=== PATIENT | male | born 1965 | race Two or more races ===

== ENCOUNTER 2024-04-02 15:03 | Outpatient (AMB) | payer OTHER, SELFPAY ==
--- NOTE | 2024-04-02 15:06 | A.OFFVIS_ITS ---
Vital Signs 04/02/24 15:27 Height 5 ft 11 in Weight 196 lb 8 oz BMI 27.4 BP 132/80 Blood Pressure Location Lt brachial Position Sitting Pulse 70 Pulse Source Pulse Oximeter Pulse Oximetry (%) 96 Oxygen Delivery Method Room Air Intake Visit Reasons: ENP-Extremity Neuropathy-CONF Intake Note: Patient presents for Extremity Neuropathy. Suffering from chronic lower back pain, still having trouble sleeping at night because I wake up with my legs cramping, tingling on hands, feet and toes. Appetite has decline. Having very bad anxiety and fear of falling or having another cardiac event. Allergies No Known Allergies Allergy (Verified 04/02/24 15:16) Medication List - Last Reconciled 04/02/24 by DANICA Abreu acetaminophen 325 mg PO QID PRN aspirin 81 mg PO DAILY atorvastatin 80 mg PO DAILY cyclobenzaprine 5 mg PO BEDTIME PRN insulin glargine (Lantus Solostar U-100 Insulin) 8 units subcut QPM losartan 50 mg PO DAILY metformin ER 500 mg PO BID metoprolol succinate ER 100 mg PO DAILY mirtazapine 15 mg PO BEDTIME naproxen 500 mg PO BID omeprazole 20 mg PO DAILY vitamin B complex-folic acid 0.4 mg 1 tab PO DAILY HPI Comments Details: handed 59-yr-old male presents for neurological evaluation of paresthesias. PMH: Left sided sciatica type pain since he had a fall in spring. Diabetes mellitus type 2- Dx'd 2 yrs ago in 2021. HgA1C 8.5 %?High (09/23/23 , He states his diabetes is controlled. HTN. Inferior STEMI 05/16/2023 s/p PCI with EVETTE x1- culprit 99% stenosis mid RCA.? He had residual CAD- proximal LAD and proximal OM2.?Immediately after completing a f/u EKG stress test, pt developed VF arrest.? Repeat cardiac cath showed progression of CAD and thus underwent CABG x 5 (COOL to LAD, left radial to OM1, SVG to OM 2, SVG to diagonal 1, SVG to diagonal 2) 09/2023.? Last cardiac MRI prior to CABG showed LVEF 53%. Pt states prior to May 2023, he was prone to eat a lot of high sugar foods. Pt reports that he started having bilateral, but more in left toes and plantar foot- it is a sensation of swelling and numbness, Lasts for 3-5 minutes, and occurs about 3 times per week. Last week, woke up with leg cramp that moved down into the left foot- toes cramped in a flexed position. But this has happened in the right foot as well as both feet. The cramps last 5-10 minutes and occur 3-4 nights a week. Then started having tingling in his left hand, but can occur bilaterally. The tingling lasts a few minutes. Occurs a few days a week- maybe every other day. His hands can feel stiff for a few minutes- maybe once a week. Since, the recent CABG, he has had difficulty sleeping- as he was advised to sleep on his back, but normally would sleep on his side d/t his chronic back pain. Now, he sleeps 5-6 hrs per night. Prior to the cardiac sx, he would sleep 7-8 hrs per night. Pt also endorses- toes may seem red at time. Leg cramps when sitting or laying down. Gait can feel off-balance. May feel anxious and he is worried he may fall. Walking w/ cane since cardiac surgery. Occasional non-radiating neck stiffness- he attributes to stress. Pt denies visible peripheral swelling, calf cramps when walking. 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 [facility] 01/29/24 16:10 09/24/23 22:19 05/16/2023 05:01 WBC 10.1 RBC 4.69 HgB 14.1 HCT 42.7 MCV 91.0 Platelet 267 Sodium 140 Potassium 3.9 chloride 103 bicarbonate level 27 anion gap 10 glucose level 112 BUN 11 creatinine 0.8 estimated GFR creatinine 106 calcium 9.0 phosphorus 2.8 magnesium 1.0 total protein 6.6 albumin 4.1 AG ratio 1.6 alkaline phosphatase 101 AST 19 the ALT 31 bilirubin, total 0.7 Nt-Probnp ? 401 High Sensitivity Troponin (HSTnT) 16 Iron Level 143 -- Iron Binding Capacity, Unsaturated 179 -- Iron Binding Capacity, Estimated Total 322 -- % Iron Saturation 44 -- Ferritin Level ?464 H TSH ?<0.01 L 11/2023, US Extremity Non-Vascular Right Limited IMPRESSION: Hypoechoic tissue surrounded by echogenic fat along the expected course of the previously harvested greater saphenous vein in the right medial proximal thigh, likely representing subcutaneous edema. A rounded hypoechoic lesion in the superficial soft tissues measuring up to 0.5 cm may represent a small seroma or hematoma. Findings likely reflect postoperative change/fat necrosis. Clinical follow-up can be considered. [facility] Surgical History (Updated 04/02/24 @ 15:37 by ARLEY Modi) H/O heart surgery Hx of colonoscopy Family History (Updated 04/02/24 @ 15:27 by ARLEY Modi) Father Hypertension Mother Hypertension Diabetes Social History (Updated 03/31/24 @ 15:14 by Denia Barron [facility]) Alcohol intake: never Patient Tobacco Use Status: Never used Tobacco Review of Systems Const All systems reviewed & are unremarkable except as noted in HPI and below Physical Exam Vital Signs: Last Vital Signs Pulse 70 04/02/24 15:27 BP 132/80 04/02/24 15:27 Pulse Ox 96 04/02/24 15:27 Oxygen Delivery Method Room Air 04/02/24 15:27 BMI result Body Mass Index 27.4 Const General: cooperative and no acute distress Orientation/consciousness: patient oriented x3 HEENT Head: Yes normocephalic Resp Effort & Inspection: normal respiratory effort and able to speak in complete sentences Neuro General: patient oriented x3, moves all extremities, CN's II-XI intact bilaterally and deep tendon reflexes 2+ bilaterally Gait exam (Neuro): Normal gait present Motor exam (neuro): 5/5 motor strength present throughout Psych Appearance: grossly normal Mental Status: mental status grossly normal Speech and movement: Normal speech and movement present Affect: normal affect Attitude: cooperative Thought process: Normal thought process present Thought content: Normal thought content present Insight: Good insight present (Psych) Assessment & Plan Assessment & Plan (1) Paresthesia: Code(s): R20.2 - Paresthesia of skin Category: Medical (2) Muscle cramps: Code(s): R25.2 - Cramp and spasm Category: Medical (3) Fatigue: Code(s): R53.83 - Other fatigue Category: Medical (4) Snoring: Code(s): R06.83 - Snoring Category: Medical (5) History of ST elevation myocardial infarction (STEMI): Code(s): I25.2 - Old myocardial infarction Category: Medical Plan Patient advised to undergo: Lab workup to assess for secondary etiologies of paresthesias, muscle cramps, fatigue BUE EMG/NCS BLE EMG/NCS In lab sleep study to assess for sleep apnea, limb movements of sleep Trial magnesium oxide 400 mg q.h.s.- for leg cramps. Orders: Orders Comprehensive Met. Panel 04/02/24 R20.2 - Paresthesia of skin, R25.2 - Cramp and spasm, E11.9 - Type 2 diabetes mellitus without complications, I10 - Essential (primary) hypertension, Z86.2 - Personal history of diseases of the blood and blood-forming organs and certain disorders involving the immune mechanism, R79.89 - Other specified abnormal findings of blood chemistry, R53.83 - Other fatigue Complete Blood Count Auto Diff 04/02/24 R20.2 - Paresthesia of skin, R25.2 - Cramp and spasm, E11.9 - Type 2 diabetes mellitus without complications, I10 - Essential (primary) hypertension, Z86.2 - Personal history of diseases of the blood and blood-forming organs and certain disorders involving the immune mechanism, R79.89 - Other specified abnormal findings of blood chemistry, R53.83 - Other fatigue CRP High Sensitivity 04/02/24 R20.2 - Paresthesia of skin, R25.2 - Cramp and spasm, E11.9 - Type 2 diabetes mellitus without complications, I10 - Essential (primary) hypertension, Z86.2 - Personal history of diseases of the blood and blood-forming organs and certain disorders involving the immune mechanism, R79.89 - Other specified abnormal findings of blood chemistry, R53.83 - Other fatigue Ferritin 04/02/24 R20.2 - Paresthesia of skin, R25.2 - Cramp and spasm, E11.9 - Type 2 diabetes mellitus without complications, I10 - Essential (primary) hypertension, Z86.2 - Personal history of diseases of the blood and blood- forming organs and certain disorders involving the immune mechanism, R79.89 - Other specified abnormal findings of blood chemistry, R53.83 - Other fatigue Vitamin D 25-OH (D2 and D3) 04/02/24 R20.2 - Paresthesia of skin, R25.2 - Cramp and spasm, E11.9 - Type 2 diabetes mellitus without complications, I10 - Essential (primary) hypertension, Z86.2 - Personal history of diseases of the blood and blood-forming organs and certain disorders involving the immune mechanism, R79.89 - Other specified abnormal findings of blood chemistry, R53.83 - Other fatigue TSH reflex Free T4 04/02/24 R20.2 - Paresthesia of skin, R25.2 - Cramp and spasm, E11.9 - Type 2 diabetes mellitus without complications, I10 - Essential (primary) hypertension, Z86.2 - Personal history of diseases of the blood and blood-forming organs and certain disorders involving the immune mechanism, R79.89 - Other specified abnormal findings of blood chemistry, R53.83 - Other fatigue Methylmalonic Acid 04/02/24 R20.2 - Paresthesia of skin, R25.2 - Cramp and spasm, E11.9 - Type 2 diabetes mellitus without complications, I10 - Essential (primary) hypertension, Z86.2 - Personal history of diseases of the blood and blood-forming organs and certain disorders involving the immune mechanism, R79.89 - Other specified abnormal findings of blood chemistry, R53.83 - Other fatigue Erythrocyte Sedimentation Rate 04/02/24 R20.2 - Paresthesia of skin, R25.2 - Cramp and spasm, E11.9 - Type 2 diabetes mellitus without complications, I10 - Essential (primary) hypertension, Z86.2 - Personal history of diseases of the blood and blood-forming organs and certain disorders involving the immune mechanism, R79.89 - Other specified abnormal findings of blood chemistry, R53.83 - Other fatigue Magnesium 04/02/24 R20.2 - Paresthesia of skin, R25.2 - Cramp and spasm, E11.9 - Type 2 diabetes mellitus without complications, I10 - Essential (primary) hypertension, Z86.2 - Personal history of diseases of the blood and blood-formi ng organs and certain disorders involving the immune mechanism, R79.89 - Other specified abnormal findings of blood chemistry, R53.83 - Other fatigue RT PSG in-lab sleep study 04/02/24 R53.83 - Other fatigue, R06.83 - Snoring, I25.2 - Old myocardial infarction Creatine Kinase Total 04/02/24 R20.2 - Paresthesia of skin, R25.2 - Cramp and spasm, E11.9 - Type 2 diabetes mellitus without complications, I10 - Essential (primary) hypertension, Z86.2 - Personal history of diseases of the blood and blood-forming organs and certain disorders involving the immune mechanism, R79.89 - Other specified abnormal findings of blood chemistry, R53.83 - Other fatigue HIV Ab/Ag 04/02/24 R20.2 - Paresthesia of skin, R25.2 - Cramp and spasm, E11.9 - Type 2 diabetes mellitus without complications, I10 - Essential (primary) hypertension, Z86.2 - Personal history of diseases of the blood and blood- forming organs and certain disorders involving the immune mechanism, R79.89 - Other specified abnormal findings of blood chemistry, R53.83 - Other fatigue Homocysteine 04/02/24 R20.2 - Paresthesia of skin, R25.2 - Cramp and spasm, E11.9 - Type 2 diabetes mellitus without complications, I10 - Essential (primary) hypertension, Z86.2 - Personal history of diseases of the blood and blood-forming organs and certain disorders involving the immune mechanism, R79.89 - Other specified abnormal findings of blood chemistry, R53.83 - Other fatigue IRON PROFILE 04/02/24 R20.2 - Paresthesia of skin, R25.2 - Cramp and spasm, E11.9 - Type 2 diabetes mellitus without complications, I10 - Essential (primary) hypertension, Z86.2 - Personal history of diseases of the blood and blood-forming organs and certain disorders involving the immune mechanism, R79.89 - Other specified abnormal findings of blood chemistry, R53.83 - Other fatigue Vitamin B12 and Folate 04/02/24 R20.2 - Paresthesia of skin, R25.2 - Cramp and spasm, E11.9 - Type 2 diabetes mellitus without complications, I10 - Essential (primary) hypertension, Z86.2 - Personal history of diseases of the blood and blood-forming organs and certain disorders involving the immune mechanism, R79.89 - Other specified abnormal findings of blood chemistry, R53.83 - Other fatigue Hemoglobin A1c 04/02/24 R20.2 - Paresthesia of skin, R25.2 - Cramp and spasm, E11.9 - Type 2 diabetes mellitus without complications, I10 - Essential (primary) hypertension, Z86.2 - Personal history of diseases of the blood and blood-forming organs and certain disorders involving the immune mechanism, R79.89 - Other specified abnormal findings of blood chemistry, R53.83 - Other fatigue NE electromyogram (EMG) 04/02/24 R20.2 - Paresthesia of skin, R25.2 - Cramp and spasm, E11.9 - Type 2 diabetes mellitus without complications NE nerve conduction velocity 04/02/24 R20.2 - Paresthesia of skin, R25.2 - Cramp and spasm, E11.9 - Type 2 diabetes mellitus without complications Medications: New magnesium oxide may hold for loose stools 400 mg PO BEDTIME 30 tabs 6RF 30 days Coding Level of Care Code New Pt Level 4 (12313) Diagnoses Paresthesia R20.2 Muscle cramps R25.2 Fatigue R53.83 Snoring R[address] elevation myocardial infarction (STEMI) I25.2
[2024-04-02 15:27] VITALS: BP 132/80; PULSE 70; O2SAT 96; BMI 27.4
== END 2024-04-02 16:50 | disposition home or self-care (01) ==
PROVIDERS: PCP Internal Medicine; Visit Provider Nurse Practitioner Family
DX: R20.2 Paresthesia of skin (principal); R25.2 Cramp and spasm; R53.83 Other fatigue; R06.83 Snoring; I25.2 Old myocardial infarction
CPT/HCPCS: 99204

== ENCOUNTER → 2024-04-02 15:03 | Outpatient (BNVA) | payer OTHER, SELFPAY | PROVIDERS: PCP Internal Medicine; Visit Provider Nurse Practitioner Family | DX: R20.2 Paresthesia of skin (principal); R25.2 Cramp and spasm; R53.83 Other fatigue; R06.83 Snoring; I25.2 Old myocardial infarction | CPT/HCPCS: 99202 ==

== ENCOUNTER → 2024-05-25 19:30 | Outpatient (REF) | payer OTHER, SELFPAY | LOC: HO.SL 19:30 | PROVIDERS: PCP Internal Medicine; Visit Provider Nurse Practitioner Family | DX: G47.33 Obstructive sleep apnea (adult) (pediatric) (principal); R53.83 Other fatigue; R06.83 Snoring | CPT/HCPCS: 95810 ==

== ENCOUNTER → 2024-05-25 22:59 | Outpatient (BNV) | payer OTHER, SELFPAY | PROVIDERS: PCP Internal Medicine; Visit Provider Psychiatry & Neurology Neurology | DX: G47.33 Obstructive sleep apnea (adult) (pediatric) (principal) | CPT/HCPCS: 95810 ==

== ENCOUNTER 2024-06-04 13:56 | Outpatient (REF) | payer OTHER, SELFPAY ==
--- NOTE | 2024-06-04 14:03 | EMG_ITS ---
Chief complaint: Feet and hand numbness, leg cramps, history of diabetes, CABG Reason for referral: Evaluate for neuropathy Referred by: Daxa Cordero NP Procedure done: Upper and lower extremities NCS/EMG Precautions and/or limitations: Afraid of needles The limb temperature was monitored continuously and remained between 32-36 degrees C during the performance of the NCS. Nerve Conduction Studies Anti Sensory Summary Table ?Stim Site NR Onset (ms) Norm Onset (ms) Peak (ms) Norm Peak (ms) O-P Amp (?V) Norm O-P Amp Site1 Site2 Delta-0 (ms) Dist (cm) Michael (m/s) Norm Michael (m/s) Left Median Anti Sensory (2nd Digit) Wrist ? 2.7 3.4 <3.6 18.3 >10 Wrist 2nd Digit 2.7 14.0 52 Right Median Anti Sensory (2nd Digit) Wrist ? 2.8 3.8 <3.6 12.7 >10 Wrist 2nd Digit 2.8 14.0 50 Left Sural Anti Sensory (Lat Mall) Calf ? 3.7 4.3 <4.0 3.9 >5.0 Calf Lat Mall 3.7 14.0 38 Right Sural Anti Sensory (Lat Mall) Calf ? 3.3 3.8 <4.0 5.2 >5.0 Calf Lat Mall 3.3 14.0 42 Left Ulnar Anti Sensory (5th Digit) Wrist ? 0.9 3.2 <3.7 17.8 >15.0 Wrist 5th Digit 0.9 14.0 156 Right Ulnar Anti Sensory (5th Digit) Wrist ? 2.2 3.2 <3.7 15.2 >15.0 Wrist 5th Digit 2.2 14.0 64 Motor Summary Table ?Stim Site NR Onset (ms) Norm Onset (ms) O-P Amp (mV) Norm O-P Amp iAmp (mV) Amp (1st) (%) Site1 Site2 Delta-0 (ms) Dist (cm) Michael (m/s) Norm Michael (m/s) Left Median Motor (Abd Poll Brev) Wrist ? 3.2 <3.9 12.0 >4.5 15.3 100.0 Elbow Wrist 5.0 24.5 49 >45 Elbow ? 8.2 10.5 13.9 87.5 Right Median Motor (Abd Poll Brev) Wrist ? 3.8 <3.9 12.3 >4.5 15.5 100.0 Elbow Wrist 5.1 25.0 49 >45 Elbow ? 8.9 10.5 13.1 85.4 Right Peroneal Motor (Ext Dig Brev) Ankle ? 4.7 <4.0 6.7 >2.5 8.5 100.0 Ankle Ext Dig Brev 4.7 0.0 B Fib ? 13.6 5.2 6.6 77.6 B Fib Ankle 8.9 37.5 42 >40 Poplt ? 14.5 5.4 6.6 80.6 Poplt B Fib 0.9 4.0 44 >40 Left Tibial Motor (Abd Wood Brev) Ankle ? 4.7 <5 5.8 >2.5 7.3 100.0 Ankle Abd Wood Brev 4.7 0.0 Knee ? 15.9 4.2 5.7 72.4 Knee Ankle 11.2 44.0 39 >40 Right Tibial Motor (Abd Wood Brev) Ankle ? 4.8 <5 2.3 >2.5 2.9 100.0 Ankle Abd Wood Brev 4.8 0.0 Knee ? 14.4 1.3 1.6 56.5 Knee Ankle 9.6 44.5 46 >40 Left Ulnar Motor (Abd Dig Minimi) Wrist ? 2.7 <3.0 6.4 >5 7.2 100.0 B Elbow Wrist 4.2 22.5 54 >45 B Elbow ? 6.9 5.7 6.5 89.1 A Elbow B Elbow 1.9 10.0 53 >45 A Elbow ? 8.8 5.4 6.3 84.4 Right Ulnar Motor (Abd Dig Minimi) Wrist ? 2.4 <3.0 9.0 >5 11.0 100.0 B Elbow Wrist 4.8 24.0 50 >45 B Elbow ? 7.2 8.6 10.7 95.6 A Elbow B Elbow 1.3 10.0 77 >45 A Elbow ? 8.5 8.4 10.4 93.3 Comparison Summary Table ?Stim Site NR Peak (ms) Norm Peak (ms) P-T Amp (?V) Site1 Site2 Delta-P (ms) Norm Delta (ms) Right Median/Radial Dig I Comparison (Digit 1 - 10cm) Median ? 3.2 <2.9 176.5 Median Radial 0.7 Radial ? 2.5 <2.8 12.3 EMG ?Side Muscle Nerve Root Ins Act Fibs Psw Amp Dur Poly Recrt Int Pat Comment Right 1stDorInt Ulnar C8-T1 Nml Nml Nml Nml Nml 0 Nml Complete Right FlexCarRad Median C6-7 Nml Nml Nml Nml Nml 0 Nml Complete Right Biceps Musculocut C5-6 Nml Nml Nml Nml Nml 0 Nml Complete Right Triceps Radial C6-7-8 Nml Nml Nml Nml Nml 0 Nml Complete Right Deltoid Axillary C5-6 Nml Nml Nml Nml Nml 0 Nml Complete Right AbdHallucis MedPlantar S1-2 Nml Nml Nml Nml Nml 0 Nml Complete Right AntTibialis Dp Br Peron L4-5 Incr 1+ 1+ Nml Nml 0 Nml Complete Right PostTibialis Tibial L5, S1 Nml Nml Nml Nml Nml 0 Nml Complete Right MedGastroc Tibial S1-2 Nml Nml Nml Nml Nml 0 Nml Complete Right VastusMed Femoral L2-4 Nml Nml Nml Nml Nml 0 Nml Complete Left AbdHallucis MedPlantar S1-2 Incr 1+ 1+ Nml Nml 0 Nml Complete Left AntTibialis Dp Br Peron L4-5 Nml Nml Nml Nml Nml 0 Nml Complete Left PostTibialis Tibial L5, S1 Nml Nml Nml Nml Nml 0 Nml Complete Left MedGastroc Tibial S1-2 Nml Nml Nml Nml Nml 0 Nml Complete Left VastusMed Femoral L2-4 Nml Nml Nml Nml Nml 0 Nml Complete Paraspinal EMG ?Side Muscle Nerve Root Ins Act Fibs Psw Comment Right Lumbar Upper Rami Nml Nml Nml Right Lumbar Mid Rami Nml Nml Nml Right Lumbar Lower Rami Nml Nml Nml Left Lumbar Upper Rami Nml Nml Nml Left Lumbar Mid Rami Nml Nml Nml Left Lumbar Lower Rami Nml Nml Nml FINDINGS: Right peroneal nerve showed prolonged distal latency, normal amplitude and normal conduction velocity. Right tibial nerve showed normal distal latency, small amplitudes with temporal dispersion and normal conduction velocity. Left tibial nerve showed normal distal latency, small amplitude and slow conduction velocity. Left sural showed prolonged peak latency. Right median sensory nerve showed prolonged peak latencies. Significant interlatency difference between right median and radial sensory nerves. All other nerves tested were within normal. Concentric needle EMG was performed in selected muscles of the bilateral lower extremities and were paraspinals, right upper extremity. Study revealed signs of electric abnormalities as shown in the table above. Bilateral AH showed increased insertional activity, PSWs and fibrillations. No denervation seen on lumbar paraspinals. No myopathic looking units. IMPRESSION: 1. This is an abnormal study. 2. There is electrodiagnostic evidence for sensorimotor distal polyneuropathy, with both demyelinating and axonal features.. 3. There is electrodiagnostic evidence for mild median neuropathy at the wrist, consistent with Carpal Tunnel Syndrome. 4. There is no electrodiagnostic evidence for ulnar neuropathy, brachial plexopathy, cervical radiculopathy, or lumbar radiculopathy. CLINICAL COMMENT: Can wear wrist splints on right during sleep. Thank you for your kind referral. Jodi Hebert MD, BHAVYA Board Certified, [place] Board [employer] and Rehabilitation (ABPMR) Board Certified, [place] Board of Electrodiagnostic Medicine (ABEM) CODIN [id number] x 2 MTDD
== END 2024-06-04 13:57 | disposition home or self-care (01) ==
LOC: HO.NEURO 13:56
PROVIDERS: PCP Internal Medicine; Visit Provider Nurse Practitioner Family
DX: R20.2 Paresthesia of skin (principal); R25.2 Cramp and spasm; E11.9 Type 2 diabetes mellitus without complications
CPT/HCPCS: 95886; 95913

== ENCOUNTER → 2024-06-04 14:03 | Outpatient (BNV) | payer OTHER, SELFPAY | PROVIDERS: PCP Internal Medicine; Visit Provider Physical Medicine & Rehabilitation | DX: G56.03 Carpal tunnel syndrome, bilateral upper limbs (principal); E11.42 Type 2 diabetes mellitus with diabetic polyneuropathy | CPT/HCPCS: 95886; 95913 ==

== ENCOUNTER → 2024-08-06 20:30 | Outpatient (REF) | payer OTHER, SELFPAY | LOC: HO.SL 20:30 | PROVIDERS: PCP Internal Medicine; Visit Provider Nurse Practitioner Family | DX: G47.33 Obstructive sleep apnea (adult) (pediatric) (principal) | CPT/HCPCS: 95811 ==

== ENCOUNTER → 2024-08-06 22:48 | Outpatient (BNV) | payer OTHER, SELFPAY | PROVIDERS: PCP Internal Medicine; Visit Provider Psychiatry & Neurology Neurology | DX: G47.33 Obstructive sleep apnea (adult) (pediatric) (principal) | CPT/HCPCS: 95811 ==

== ENCOUNTER 2024-08-25 14:10 | Outpatient (AMB) | payer OTHER, SELFPAY ==
--- NOTE | 2024-08-25 14:43 | MHC.OFFVIS ---
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 He is currently wearing a brace at night to aid with numbness. EMG done. Allergies No Known Allergies Allergy (Verified 08/25/24 14:58) HPI HPI CHINESE INSTRUCTOR- Right hand CTS: Details: Jay is a 59 year old right hand dominant Diabetic man who presents for a NCS review of his right hand numbness. He complains of numbness in the right thumb, index, and middle fingers. Symptoms intermittent, but daily, worse at night. He says he has difficulty gripping and holding objects, and occasionally drops things. He is a Diabetic and says this is well-controlled. 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 He has a Hx of two heart attacks within the last year, and a coronary bypass. He says he is doing well now and has been making lifestyle changes to take care of his health. [facility] Surgical History (Updated 04/02/24 @ 15:37 by ARLEY Modi) H/O heart surgery Hx of colonoscopy Family History (Updated 04/02/24 @ 15:27 by ARLEY Modi) Father Hypertension Mother Hypertension Diabetes Social History (Updated 03/31/24 @ 15:14 by Denia Barron [facility]) Alcohol intake: never Patient Tobacco Use Status: Never used Tobacco Review of Systems Const All systems reviewed & are unremarkable except as noted in HPI and below Physical Exam Vital Signs: BMI result Body Mass Index 27.4 Const General: cooperative, healthy appearing and no acute distress Orientation/consciousness: patient oriented x3 HEENT Head: Yes normocephalic and Yes atraumatic Eyes EOM: EOMs intact bilaterally Resp Effort & Inspection: normal respiratory effort and able to speak in complete sentences Cardio Jugular venous distension: no JVD Skin General skin exam: turgor normal Rashes: no rashes Neuro General: patient oriented x3 Extrem Other: Evaluation ofRight Upper Extremity: The patient is alert, oriented, and in no acute distress Neuro: Median, Ulnar, Radial nerves motor and sensory intact and sensation is normal to the tips of all digits No thenar or intrinsic wasting Vascular: Cap refill brisk ROM: He can make a fist and extend all his digits No locking or catching Skin: No lacerations or abrasions. General: No Ecchymosis. No Erythema or evidence of infection. Nerve Conduction Study Bilateral upper & lower extremities IMPRESSION: 1. This is an abnormal study. 2. There is electrodiagnostic evidence for sensorimotor distal polyneuropathy, with both demyelinating and axonal features. 3. There is electrodiagnostic evidence for mild right median neuropathy at the wrist, consistent with Carpal Tunnel Syndrome. 4. There is no electrodiagnostic evidence for ulnar neuropathy, brachial plexopathy, cervical radiculopathy, or lumbar radiculopathy. Jodi Hebert MD, BHAVYA 06/04/24 Psych Appearance: grossly normal Affect: normal affect Attitude: cooperative Assessment & Plan Assessment & Plan (1) Carpal tunnel syndrome of right wrist: Code(s): G56.01 - Carpal tunnel syndrome, right upper limb Category: Medical (2) Diabetes: Code(s): E11.9 - Type 2 diabetes mellitus without complications Category: Medical Plan Assessment & Plan: 1. Right carpal tunnel syndrome, mild Symptoms intermittent, but daily, worse at night I educated him about this condition I discussed operative and non-operative treatment options, including the risks of delaying treatment The patient would like to proceed with surgery The risks and benefits of operative treatment were discussed with the patient and the patient wishes to proceed with surgery. These risks include, but are not limited to risk of damage to blood vessels, nerves, tendons, infection, recurrence, incomplete relief of preoperative symptoms, persistent pain, possible need for further surgery and the risks associated with regional blocks and anesthesia. The plan is to take the patient to the operating room sometime in the next few weeks for the following procedures: 1. Right carpal tunnel release, under local All of the preoperative paperwork including the consent was reviewed today. All the patient's questions were answered. The patient understands that they will be contacted by our province archivist soon to schedule this procedure He denies blood thinners, asthma, heart, lung, kidney issues He is a Diabetic and there is no recent HgA1c on file. They will need an updated HgA1c that is <8.1% in order to proceed with surgery, and they expressed understanding He is status post a five-vessel CABG Scribed for Buffy Bonner MD by Carlos Juan, medical imaging tech, on 08/25/24 at 3:00 PM, EST. Coding Level of Care Code New Pt Level 4 (48144) Diagnoses Carpal tunnel syndrome of right wrist G56.01 Diabetes E11.9
[2024-08-25 14:45] VITALS: BMI 27.4
== END 2024-08-25 15:16 | disposition home or self-care (01) ==
PROVIDERS: PCP Internal Medicine; Visit Provider Orthopaedic Surgery
DX: G56.01 Carpal tunnel syndrome, right upper limb (principal); E11.9 Type 2 diabetes mellitus without complications
CPT/HCPCS: 99204

== ENCOUNTER → 2024-08-25 14:10 | Outpatient (BNVA) | payer OTHER, SELFPAY | PROVIDERS: PCP Internal Medicine; Visit Provider Orthopaedic Surgery | DX: G56.01 Carpal tunnel syndrome, right upper limb (principal); E11.9 Type 2 diabetes mellitus without complications | CPT/HCPCS: 99202 ==